=== PATIENT | female | born 1995 | race Caucasian/White ===

== ENCOUNTER 2016-07-05 02:33 | Emergency (ER) | payer OTHER ==
[~2016-07-05] VITALS: Ht 170.2 cm; Wt 110.8 kg
[2016-07-05 02:38] VITALS: TEMP 36.7; Ht 170.2 cm; Wt 110.8 kg
[2016-07-05] MEDS ORDERED: FENTANYL CITRATE INJ 50 MCG/1 ML 2 ML VIAL IV ONE (02:45)
[2016-07-05] MEDS ORDERED: MoRPHine SULFATE 4 MG/ML 1 ML CARP\\VIAL IV ONE ×2 (03:45→05:45)
[2016-07-05] MEDS ORDERED: KETAMINE HCL INJ 50 MG/ML 10 ML VIAL IV STA (07:05)
[2016-07-05] MEDS ORDERED: XYLOCAINE 1%/SOD BICARB 20 ML VIAL INFIL ONE (07:15)
[2016-07-05] MEDS ORDERED: PROPOFOL IV EMULSION 10 MG/ML 100 ML VIAL IV PRN (07:15)
--- NOTE | 2016-07-05 08:00 | EMERGENCY ROOM VISIT NOTE ---
ED Visit Note First contact with patient: 07:23 Procedural Sedation Indication Fracture reduction. Total time: 25 minutes. Written consent was obtained after the risks and benefits were explained to the patient, including, but not limited to aspiration, allergic reaction, breathing difficulties, cardiac complications, vomiting, pain, event recall, bleeding, and /or infection. Pre-sedation examination and paperwork completed. The patient was on 100% oxygen via NRB prior to the procedure. Continuous end tidal CO2 monitoring, pulse oximetry, and cardiac monitoring were utilized. Suction, airway equipment, medications, respiratory equipment, and appropriate personnel were prepared prior to the initiation of the procedure. A time out was taken. Sedation was achieved utilizing 50 mg of Ketamine and 100 mg of propofol. After I observed the patient had reached the appropriate level of sedation the main procedure was performed without complication. Sedation was discontinued and the monitoring continued. The patient recovered quickly from the effects of the medication without complication or adverse event.
--- NOTE | 2016-07-05 08:05 | DIAGNOSTIC IMAGING REPORT ---
RIGHT ANKLE 3 VIEWS CLINICAL HISTORY: Postreduction examination. FINDINGS: 3 portable views of the right ankle are compared to study performed earlier the same day 07/05/2016. The examination is performed through a cast, obscuring fine bony detail. There has been improved alignment of a comminuted fracture through the mid to distal right fibula and a distracted medial malleolar fracture of the right tibia as compared to the prereduction examination. There is persistent widening of the medial joint space. A posterior malleolar fracture right tibia is also suspected. There is associated joint effusion with overlying soft tissue edema. IMPRESSION: Improved alignment of distal right tibial and fibular fractures status post external fixation. See above. Electronically signed by: Gurpreet Chambers M.D. 07/05/2016 8:04 AM
--- NOTE | 2016-07-05 08:10 | DIAGNOSTIC IMAGING REPORT ---
RIGHT ANKLE 2 VIEWS CLINICAL HISTORY: Right ankle injury and deformity. FINDINGS: AP and lateral views of the right ankle are obtained. No prior studies are available for comparison at the time of dictation. The skeletal structures are well mineralized. There is a comminuted fracture of the distal fibular shaft and lateral malleolus. There is apex medial angulation of the fracture fragments with approximately 3 cm of overriding of the largest fragments. There is also an avulsion fracture of the medial malleolus with surrounding bony fragments. A posterior malleolar fracture of the tibia is also suspected. There is dislocation at the ankle joint, with lateral distraction at the tibiotalar articulation. Both malleoli are in anatomic alignment as compared to the talus. There are numerous fragments between the distal tibia and fibula. A large joint effusion is noted and there is marked overlying soft tissue edema. IMPRESSION: Fracture/dislocation at the ankle joint as above with associated joint effusion and soft tissue edema. Electronically signed by: Gurpreet Chambers M.D. 07/05/2016 8:08 AM
--- NOTE | 2016-07-05 08:11 | DIAGNOSTIC IMAGING REPORT ---
INTRAOPERATIVE RADIOGRAPH CLINICAL HISTORY: Closed reduction of the right ankle. Fluoroscopy time: 8 seconds. FINDINGS: A single spot fluoroscopic view of the right ankle is correlated with ankle radiographs performed the same day 07/05/2016. Again seen are comminuted fractures of the distal fibula as well as avulsion fracture of the medial malleolus. There is significant improvement in alignment of the fragments as compared to today's radiographs. Overlying soft tissue edema is noted. IMPRESSION: Intraoperative radiograph from closed reduction of right ankle fractures as above. Electronically signed by: Gurpreet Chambers M.D. 07/05/2016 8:09 AM
[2016-07-05] MEDS ORDERED: OXYC1TAB3 PO (08:14)
--- NOTE | 2016-07-05 08:31 | DIAGNOSTIC IMAGING REPORT ---
RIGHT KNEE 2 VIEWS CLINICAL HISTORY: Right leg injury. FINDINGS: AP and crosstable lateral portable views of the right knee are obtained. No prior studies are available for comparison at the time of dictation. The skeletal structures are well mineralized. No fracture is seen. The joint spaces of the knee are well-maintained. There is no significant joint effusion. Prepatellar soft tissue swelling is noted. IMPRESSION: Prepatellar soft tissue swelling with no acute bony abnormality identified in the right knee. Electronically signed by: Gurpreet Chambers M.D. 07/05/2016 8:29 AM
--- NOTE | 2016-07-05 08:54 | ORTHOPEDIC CONSULTATION ---
DATE OF CONSULTATION: 07/05/2016 REASON FOR CONSULTATION: Subsequent to right ankle fracture. HISTORY OF PRESENT ILLNESS: This is a 21-year-old female who was [place] a bar downtown last night, she sustained a slip on a wet ground, complaints of pain and deformity in the right ankle. She was seen in the Emergency Department. She denies any other injury or loss of consciousness. She has no complaints of numbness and tingling. She is appropriate and complained of pain in the right ankle. PHYSICAL EXAMINATION: Right ankle examination shows obvious deformity in the ankle. Her foot is externally rotated relative to the leg. She has no open injuries. She can flex and extend the toes, but further exam is limited secondary to discomfort. Foot is warm and well perfused. DATA: Three views of the right ankle show a displaced ankle fracture, comminuted fibular fracture is seen approximately 5-6 mm proximal to the ankle joint, complete lateral displacement of the talus relative to the tibia is seen. Medial malleolar fracture is seen. I do not appreciate a posterior malleolar fracture. ASSESSMENT: Bimalleolar displaced right ankle fracture in a 21-year-old female. PLAN: I discussed treatment with her. My recommendation is for conscious sedation with closed reduction. PROCEDURE NOTE: She was given appropriate conscious sedation by the department of emergency medicine. I then hung the leg over the bed and bent the knee to 90 degrees. After a gentle reduction maneuver an audible clunk was felt and it did result in relocation of the talus under the tibia. This was confirmed under live C-arm fluoroscopy. The patient placed in a posterior splint with a U. Toes are warm and well perfused and she was neurovascularly unchanged at the end of the procedure. I injected lidocaine as hematoma block in the local area prior to the procedure. The plan will be for her to follow up as an outpatient for surgical treatment. She has been instructed to be non-weightbearing and elevate the extremity. SHAYAN
[2016-07-05 09:14] VITALS: BP 145/105; PULSE 104; O2SAT 98
--- NOTE | 2016-07-06 00:25 | EMERGENCY ROOM VISIT NOTE ---
History First contact with patient: 02:37 Chief Complaint: ANKLE PAIN Stated Complaint: ANKLE INJURY History of Present Illness The patient is a 21 year old female who presents to the Emergency Room with complaints of right ankle pain after injuring herself about 30 minutes prior to arrival. The patient has been drinking for the . Patient was leaving a nightclub, and as she exited the nightclub, slipped on the wet ground, and fell. She everted her right ankle causing her injury. She did not strike her medicines consciousness. She was not able to walk after her injury. There has been no blood or bleeding. She does not have a history of previous illness like this. She rates her current discomfort a 9/10. Review of Systems More than 10 systems were reviewed and otherwise negative with the exception of history of present illness. Past Medical/Surgical History No chronic medical disease Family History No pertinent family history Social History Smoking Status: Never Smoker Current/Historical Medications Scheduled Oxycodone Immediate Rel Tab (Roxicodone Ir), 1-2 TAB PO Q6 Allergies Coded Allergies: No Known Allergies (Unverified , 07/05/16) Physical Exam Vital Signs Date Time Temp Pulse Resp B/P Pulse Ox O2 Delivery O2 Flow Rate FiO2 07/05/16 09:14 104 145/105 98 Room Air 07/05/16 08:50 103/84 07/05/16 08:43 132/75 07/05/16 08:33 99 99 07/05/16 08:28 132/84 07/05/16 08:13 139/98 07/05/16 08:03 117 13 93 07/05/16 07:58 135/97 07/05/16 07:56 144/91 07/05/16 07:53 101 26 100 Nasal Cannula 2.0 07/05/16 07:38 95 24 100 Nasal Cannula 2.0 07/05/16 07:33 98 29 153/84 100 Nasal Cannula 4.0 07/05/16 07:28 121 10 99 Nasal Cannula 4.0 07/05/16 07:24 101 07/05/16 07:23 113 21 97 07/05/16 07:22 137/85 07/05/16 06:52 96 16 106/50 94 Room Air 07/05/16 05:02 69 20 136/71 98 Room Air 07/05/16 02:38 36.7 100 20 112/59 100 Room Air Pain Rating (0-10): 0 Physical Exam VITALS: Vitals are noted on the nurse's note and reviewed by myself. Vital signs stable. GENERAL: Well-developed, well-nourished, female who is in moderate discomfort secondary to her stated complaint. Patient is cooperative with the examination. HEAD: Normocephalic atraumatic. HEART: Regular rate and rhythm without murmurs gallops or rubs. LUNGS: Clear to auscultation bilaterally without wheezes, rales or rhonchi. No retractions or accessory muscle use. MUSCULOSKELETAL: Obvious deformity is appreciated of the right ankle. The right foot being rotated clockwise. No bleeding or blood. Neurovascular status is intact. There is no significant tenderness of the knee. No other injury noted. NEURO: Patient was alert and oriented to person place and time. CN II through XII grossly intact. Medical Decision & Procedures ER Provider Diagnostic Interpretation: RIGHT ANKLE 2 VIEWS CLINICAL HISTORY: Right ankle injury and deformity. FINDINGS: AP and lateral views of the right ankle are obtained. No prior studies are available for comparison at the time of dictation. The skeletal structures are well mineralized. There is a comminuted fracture of the distal fibular shaft and lateral malleolus. There is apex medial angulation of the fracture fragments with approximately 3 cm of overriding of the largest fragments. There is also an avulsion fracture of the medial malleolus with surrounding bony fragments. A posterior malleolar fracture of the tibia is also suspected. There is dislocation at the ankle joint, with lateral distraction at the tibiotalar articulation. Both malleoli are in anatomic alignment as compared to the talus. There are numerous fragments between the distal tibia and fibula. A large joint effusion is noted and there is marked overlying soft tissue edema. IMPRESSION: Fracture/dislocation at the ankle joint as above with associated joint effusion and soft tissue edema. INTRAOPERATIVE RADIOGRAPH CLINICAL HISTORY: Closed reduction of the right ankle. Fluoroscopy time: 8 seconds. FINDINGS: A single spot fluoroscopic view of the right ankle is correlated with ankle radiographs performed the same day 07/05/2016. Again seen are comminuted fractures of the distal fibula as well as avulsion fracture of the medial malleolus. There is significant improvement in alignment of the fragments as compared to today's radiographs. Overlying soft tissue edema is noted. IMPRESSION: Intraoperative radiograph from closed reduction of right ankle fractures as above. Medications Administered Medications (Trade) Dose Ordered Sig/Amy Route Start Time Stop Time Status Last Admin Dose Admin Fentanyl Citrate (Fentanyl Inj) 50 mcg NOW ONCE IV 07/05/16 02:45 07/05/16 02:46 DC 07/05/16 02:53 50 MCG Morphine Sulfate (MoRPHine SULFATE INJ) 4 mg NOW ONCE IV 07/05/16 03:45 07/05/16 03:46 DC 07/05/16 03:50 4 MG Morphine Sulfate (MoRPHine SULFATE INJ) 4 mg NOW ONCE IV 07/05/16 05:45 07/05/16 05:46 DC 07/05/16 05:43 4 MG ED Course Physical exam and history were performed. Nursing notes and EMR were reviewed. Patient appears to have suffered a fall with obvious deformity to her right ankle. The patient is neurovascularly intact. She does not appear to have other significant injury. She is quite uncomfortable on exam. IV access was established and the patient was given 50 g fentanyl and 2 doses of 4mg IV morphine throughout her stay. X-rays were ordered. X-rays do confirm fracture dislocation of the right ankle as described above. I discussed the case with the on-call orthopedist, Dr. Milton Schultz, who agreed to evaluate the patient here in the emergency department. Dr. Milton Schultz and Dr. Barajas were able to provide both reduction and conscious sedation with splinting. Please see their dictations for specifics regarding these procedures. Repeat imaging shows improved anatomic alignment. The patient recovered well without complication. She will be placed in a nonweightbearing status and provided crutches. I will give her a course of OxyIR. She is to contact [facility] on Wednesday for an appointment. She was given compartment syndrome precautions, and otherwise invited back to the ER with any new, worsening, or concerning symptoms. The chart was completed utilizing [employer] Speech Voice Recognition Software. Grammatical errors, random word insertions, pronoun errors, and incomplete sentences are an occasional consequence of this system due to software limitations, ambient noise, and hardware issues. Any formal questions or concerns about the content, text, or information contained within the body of this dictation should be directly addressed to the provider for clarification. . Medical Decision Differential diagnosis includes, but is not limited to: Sprain, strain, fracture , dislocation, subluxation, contusion, and others Impression Primary Impression: Closed right ankle fracture Departure Information Dispostion Home / Self-Care Condition GOOD Prescriptions Oxycodone Immediate Rel Tab (ROXICODONE IR) 5 Mg Tab 1-2 TAB PO Q6, #24 TAB Prov: Gareth Bright PA-C 07/05/16 Referrals No Doctor, Assigned (PCP) Diego Simms MD Forms HOME CARE DOCUMENTATION FORM, IMPORTANT VISIT INFORMATION Patient Instructions A Signature Page, Crutches Non Weight Bearing, Fractures - [facility], Replaced By [facility], ED Compartment Syndrome At Risk For Additional Instructions You were seen and evaluated today on an emergency basis only. This is not a substitute for, or an effort to provide, complete comprehensive medical care. It is not possible to recognize and treat all injuries or illnesses in a single emergency department visit. For this reason it is recommended that you followup [facility], Dr. Simms's office, on Wednesday for ongoing care and evaluation. Call the office at 8 AM when they open. Let them know you were seen by Dr. Simms in the ER, and they will help make your appointment. For baseline pain relief you may alternate ibuprofen and acetaminophen every 4 hours for pain control. Take 600 mg ibuprofen (Advil) and then 4 hours later take 1000 mg acetaminophen (Tylenol). Do not take more than 3000 mg acetaminophen in a single day. Oxycodone (OxyIR) 5mg: Take ONE or TWO pills every SIX hours for breakthrough pain. Avoid alcohol, operating machinery or dangerous equipment, working on ladders or roofs, DRIVING, or situations where being under the influence may be dangerous. It is recommended to use an [id number] stool softener such as Colace, 100mg twice daily while taking this medication to avoid constipation. Use your crutches for ambulation. Do not bear weight on your right ankle. Do not take your splint wet. You are welcome to return to the emergency department anytime with new, worsening, or concerning symptoms.
== END 2016-07-05 09:28 | disposition home or self-care (01) ==
LOC: C.EDB 02:36 → C.ED 09:28
DX: S82.451A Displaced comminuted fracture of shaft of right fibula, initial encounter for closed fracture (principal); S82.841A Displaced bimalleolar fracture of right lower leg, initial encounter for closed fracture; S93.04XA Dislocation of right ankle joint, initial encounter; W01.0XXA Fall on same level from slipping, tripping and stumbling without subsequent striking against object, initial encounter; Y92.59 Other trade areas as the place of occurrence of the external cause